=== PATIENT | male | born 1990 | race Caucasian/White ===

== ENCOUNTER 2018-12-07 17:38 | Emergency (ER) | payer MEDICAID ==
[~2018-12-07] VITALS: Ht 182.9 cm; Wt 131.1 kg
--- NOTE | 2018-12-07 17:38 | NUR ---
BROUGHT BACK TO BED #HALLWAY, PLACED IN BED AND TRIAGED. REPORT GIVEN TO LAY
--- NOTE | 2018-12-07 17:39 | NUR ---
Patient is awake, alert, and oriented x4. Patient was brought in by ABDELRAHMAN anthony for OK to book.
[2018-12-07 17:40] VITALS: BP_SYST 158
--- NOTE | 2018-12-07 17:45 | NUR ---
DR DELANEY AT BEDSIDE FOR EVALUATION
[2018-12-07 18:14] VITALS: BP_SYST 158
--- NOTE | 2018-12-07 18:14 | NUR ---
Patient given written and verbal discharge instructions and verbalizes understanding. ER MD discussed with patient the results and treatment provided. Patient in stable condition. ID arm band removed. Patient educated on pain management and to follow up with PMD. Pain Scale 0/10. Opportunity for questions provided and answered. Patient left in custody of ABDELRAHMAN Darren. Medication side effect fact sheet provided.
== END 2018-12-07 18:14 ==
LOC: SED 17:38
DX: F41.9 Anxiety disorder, unspecified (principal); R06.02 Shortness of breath
CPT/HCPCS: 99283